=== PATIENT | female | born 1985 | race Caucasian/White ===

== ENCOUNTER 2019-09-23 04:03 | Emergency (ER) | payer BC ==
--- NOTE | 2019-09-23 12:07 | PREOPHP ---
Date of Admission: 09/23/2019 History Of Present Illness: Ms. Ludwig is a 34-year-old female, 3, para 2-0-0-2, now at 39+ weeks gestation. She has been followed by me during this with complications of adv anced maternal age, mild anemia. She noted increasing cramping, was observed in Labor and Delivery e nikita this morning, was dismissed. She comes in for her visit complaining of probable rupture of memb ranes. Past Medical History: Please see record. Family History: Please see record. Review of Systems: She reports no recent cough, cold, fever, or chills. No recent nausea or vomiting. No breast knots or lumps. No bowel or bladder issues. Physical Examination: General: female, in no apparent distress. Neck: Supple without adenopathy or thyromegaly. Lungs: Clear. Cardiac: Regular rate and rhythm without murmurs. Breasts: Not examined. Abdomen: Estimated weight of approximately 8 pounds. Pelvic/Cervix: There is increased discharge with Nitrazine positive. Cervix is 3 cm dilated, 50% ef faced, vertex presentation at -1 to -2 station. Extremities: No cyanosis, clubbing, or edema. Impression: A 39+ week , advanced maternal age, suspected rupture of membranes. Plan: The patient will be admitted for induction of labor. SAVAGE/WILFREDO Voice ID: [id number]
== END 2019-09-23 05:18 | disposition home or self-care (01) ==
LOC: ER 04:03 → L&D 04:03 → ER 05:18 → 2ND-WC 11:16 → UNDOADMIN 11:16 → EDSTATUS 11:25
DX: O60.00 Preterm labor without delivery, unspecified trimester (principal)
CPT/HCPCS: 99218

== ENCOUNTER 2019-09-23 11:32 | Inpatient (IN) | payer BC ==
[2019-09-23] MEDS ORDERED: BUTORPHANOL 1 MG/ML INJ IV PRN (11:35)
[2019-09-23] MEDS ORDERED: METHYLERGONOVINE 0.2MG/ML AMP IM PRN ×2 (11:35→16:26)
[2019-09-23] MEDS ORDERED: CARBOPROST TROME 250 MCG/ML IM PRN ×2 (11:35→16:26)
[2019-09-23] MEDS ORDERED: PROMETHAZINE INJ 25 MG/ML AMP IV PRN (11:35)
[2019-09-23] MEDS ORDERED: Ringers Lactate 1,000 ML IV PRN (11:35)
[2019-09-23 11:54] LABS: Absolute Lymphocytes (CBC) 1.8 K/uL (0.7-4.9); Basophils % 0.6 % (0-1.3); Hematocrit 35.5 % (36.0-45.0); Lymphocytes % 16.6 % (15.3-44.8); MPV 11.1 fL (7.6-11.3); RBC Red Blood Cell Count 3.78 M/uL (3.86-4.86)
[2019-09-23] MEDS ORDERED: Ringers Lactate 1,000 ML IV SCH (12:00)
[2019-09-23] MEDS ORDERED: OXYTOCIN/LR 20 UNIT/1,000 ML BAG IV SCH ×2 (12:00→17:00)
[2019-09-23] MEDS ORDERED: ROPIVACAINE HCL 100 ML IV PRN (12:14)
[2019-09-23] MEDS ORDERED: FENTANYL CITR 100 MCG/2 ML IV ONE (12:14)
[2019-09-23] MEDS ORDERED: ROPIVACAINE HCL 0.2% 20ML AMP IV ONE (12:15)
[2019-09-23 12:19] VITALS: BMI 37.9
[2019-09-23] MEDS ORDERED: LIDOCAINE 1% 20 ML MDV ONE (14:34)
[2019-09-23] MEDS ORDERED: ONDANSETRON 4 MG (ODT) TAB PO PRN (16:26)
[2019-09-23] MEDS ORDERED: METHYLERGONOVINE 0.2 MG TAB PO PRN (16:26)
--- NOTE | 2019-09-23 16:30 | P.BOP ---
Preoperative diagnosis: 39+week , SROM, AMA, meconium stained fluid Postoperative diagnosis: same, viable male infant Primary procedure: SCVD viable male infant Estimated blood loss: 100ml Anesthesia: epidural Complications: None Transferred to: Other (273) Condition: Good
[2019-09-23] MEDS: ACETAMINOPHEN 500 MG TAB PO PRN (17:53)
[2019-09-24] MEDS: IBUPROFEN 600 MG TAB PO PRN ×3 (00:36→15:53)
--- NOTE | 2019-09-24 10:09 | DN ---
Surgeon: James Torre MD Ms. Ludwig is 34-year-old female 3, para 2-0-0-2 at 39+ weeks' gestation, admitted wi th leaking membranes. Because of this, she was induced with Pitocin. She had a first stage of labor for 5 hours and 55 minutes, second stage of labor 7 minutes. She delivered by spontaneous controlle d vaginal delivery a 7 pound 15 ounce male infant, 9 and 9 with delayed cord clamping. Cord wa s clamped, cut, and the placed on mother's upper abdomen. delivered vertex OA. Mother suffered no laceration. She delivered with epidural anesthesia with good effect. Quantitative bloo d loss was 65 mL. MPG/MODL Voice ID: [id number] Report ID: [id number]
[2019-09-24] MEDS: ACETAMINOPHEN 500 MG TAB PO PRN (11:35)
[2019-09-24 16:03] VITALS: BP 125/62; TEMP 98.1
[2019-09-24 22:38] LABS: RPR (Rapid Plasma Reagin) NON-REACT (NON-REACT)
--- NOTE | 2019-09-25 00:46 | DS ---
Date of Discharge: 09/24/2019 Final Hospital Discharge Diagnosis: 39 plus week , delivered; advanced maternal age. Complications: None. Procedures: Pitocin induction of labor, spontaneous, controlled vaginal delivery of viable male infa nt. Hospital Course: The patient is a 34-year-old female, 3, para 2-0-0-2 at 39 plus w eeks gestation, admitted with spontaneous rupture of membranes. She was augmented/induced with Pitoc in and had an uneventful labor and delivery of 7-pound 15-ounce male infant, 9 and 9 with epidu ral anesthesia. She was dismissed on the first day, ambulatory, on a select diet with rou chapis post vaginal delivery activity restriction. She had an admission hemoglobin and hematocrit of 1 2.1 and 35.5, dismissal of 33.6. She is Rh positive blood type. Rubella immune. She was dismissed to continue taking her iron and vitamins to be seen back in my office in 1 week with the usu al post vaginal delivery, activity restrictions. SAVAGE/WILFREDO Voice ID: [id number] Report ID: [id number]
[2019-09-26 11:48] LABS: HBsAG Nonreactive (Nonreactive)
--- NOTE | 2019-10-03 10:27 | PREOPHP ---
Date of Admission: 09/23/2019 History Of Present Illness: Ms. Ludwig is a 34-year-old female 3, para 2-0-0-2, who was seen in my office, noted to have leaking membranes. She had been observed in Labor and delivery, but the rupture of membranes could not be confirmed earlier in the day, but is positive on examinati on in my office. She is only having very irregular contractions. She will be admitted for induction of labor. Past Medical History: Please see record. Family History: Please see record. Review of Systems: She reports no recent cough, cold, fever, or chills. No recent nausea or vomiting. No breast knots or lumps. No bowel or bladder issues. has been active. She denies any significant vaginal b leeding or spotting. Physical Examination: General: Reveals a female in no apparent distress. Neck: Supple without adenopathy or thyromegaly. Lungs: Clear. Cardiac: Regular rate and rhythm without murmurs. Breasts: Not examined. Abdomen: Estimated weight of 8 pounds. Pelvic: Cervix noted to be 1+, 2 cm dilated. Vertex presentation. Extremities: Trace lower extremity edema. Impression: 1.A 39+ week gestation. 2.Spontaneous rupture of membranes, not in active labor. 3.Advanced maternal age. Plan: The patient will be admitted for induction of labor. SAVAGE/WILFREDO Voice ID: [id number]
--- NOTE | 2019-10-07 14:49 | DN ---
Surgeon: James Torre MD Ms. Ludwig is 34-year-old female 3, para 2-0-0-2, admitted with spontaneous rupture o f membranes, not in active labor. After induction of labor she had a first stage of labor of 5 hours and 55 minutes, second stage of labor 7 minutes. She delivered via spontaneous controlled vaginal d elivery a 7 pound 15 ounce male infant. After delayed cord clamping, the was placed on mother 's upper abdomen. Apgars were 9 and 9. Cord blood obtained. Placenta was spontaneously expelled an d appeared to be intact. Intrauterine examination revealed no retained placental fragments. She del ivered with epidural anesthesia with good effect. Quantitative blood loss was 65 mL. MPG/MODL Voice ID: [id number] Report ID: [id number]
== END 2019-09-24 17:55 | disposition home or self-care (01) | DRG 807 ==
LOC: 2ND-WC 11:32
PROVIDERS: ADMIT Specialist; ATTEND Specialist
PROC: 10E0XZZ Delivery of Products of Conception, External Approach (ICD-10-PCS; principal; 2019-09-23)
DX: O80 Encounter for full-term uncomplicated delivery (principal); Z37.0 Single live birth; Z3A.39 39 weeks gestation of pregnancy
CPT/HCPCS: 36415; 85014; 85025; 86592; 86901; 87340; 99218; J2210; J2590; J2795; J3010; J7120

== ENCOUNTER 2024-11-26 13:53 | Emergency (ER) | payer BC ==
--- OUTSIDE RECORDS SUMMARY | 2024-11-26 13:57 | XMS REPORT | Continuity of Care Document ---
Author Name Unknown Address [address] [facility]. [address] [place] [address] Organization [facility] [place] Address [address] [facility] [place] [address] Care Team Providers Care Detasseler Name Role Phone Newton Guevara DO Primary Care Physician [phone] ANDERSON, KYLEIGH CAM Attending Clinician Unavailable ANDERSON, KYLEIGH CAM Attending Clinician Unavailable ELLIE SANCHEZ Attending Clinician Unavailable Doctor Unassigned, Fridley Attending Clinician U hiram Bailey RNDaysi Attending Clinician Unavailable CHANO CHA Attending Clinician Unavailable Chano Cha MD Attending Clinician [phone] Unknown, Attending Attending Clinician Unavailab RAMONA Wright Attending Clinician Unavailable Ramona Napier PA-C Attending Clinician [phone] HIRAM AYALA Attending Clinician Unavailable Hiram Villa Attending Clinician [phone] Doctor Unassigned, [place]ley Attending Clinician U GERARDO Galdamez Attending Clinician Unavailable LAB90 Attending Clinician Unavailable Gerardo Meléndez Attending Clinician [phone] CAROL ANN SIBLEY Attending Clinician Unavailabl Carol Ann Witt Attending Clinician [phone] ANDERSON, KYLEIGH CAM Admitting Clinician Unavailable Payers Payer Name Policy Type Policy Number Effective Date Expirati on Date Source [facility] [id number] 2017 00:00:00 [place] [id number] 2018 00:00:00 [employer] 2 [id number] 2021 00:00:00 Problems Condition Name Condition Details Condition Category Status Onset Date Resolution Date Last Treatment Date Treating Clinician Comments Source Presence of intrauteri ne contracept yudith device Presence of intrauteri ne contracept yudith device Disease Active 02-06 00:00: 00 [facility] Encounter for tubal ligation counseling Encounter for tubal ligation counseling Disease Active 02-06 00:00: 00 [facility] Gastroesop hageal reflux disease without esophagiti s - Controlled Gastroesop hageal reflux disease without esophagiti s - Controlled Disease Active 12-07 00:00: 00 Tiffanie alanis Chest pain Chest pain Disease Active 12-07 00:00: 00 Tiffanie alanis DESIRAE (generaliz ed anxiety disorder) - Not Controlled DESIRAE (generaliz ed anxiety disorder) - Not Controlled Disease Active 12-07 00:00: 00 Tiffanie alanis No known active problems No known active problems Disease [facility] Allergies, Adverse Reactions, Alerts Allergy Name Allergy Type Status Severity Reaction(s) Onset Date Inactive Date Treating Clinician Comments Source AMOXICIL JENNIFER-POT CLAVULAN ATE DRUG Active N/V 09-05 00:00: 00 [facility] Amoxicil jennifer-Pot Clavulan ate Propensi ty to adverse reaction s Active Nausea and/or Vomiting 09-05 00:00: 00 [facility] NO KNOWN ALLERGIE S Drug Class Active [facility] Social History Social Habit Start Date Stop Date Quantity Comments Source Gender identity [facility] Sexual orientation U [facility] History of tobacco use Cigarette Smoker Tiffanie Coronado old - External Tobacco Comment 2024-03-05 00:00:00 2024-03-05 00:00:00 PINA [facility] History of Social function 2024-03-05 00:00:00 2024-03-05 00:00:00 [facility] Tobacco use and exposure 2024-02-07 00:00:00 2024-02-07 00:00:00 Smokeless tobacco non-user [facility] Alcoholic beverage intake 2024-02-07 00:00:00 2024-02-07 00:00:00 Current drinker of alcohol (finding) [facility] Alcohol Comment 2024-02-07 00:00:00 2024-02-07 00:00:00 ocassional [facility] Alcohol intake 2023-03-30 00:00:00 2023-03-30 00:00:00 Current drinker of alcohol (finding) [facility] Exposure to SARS-CoV-2 (event) 2022-08-26 00:00:00 2022-09-05 09:13:00 Not sure [facility] Sex Assigned At 1985 00:00:00 1985 00:00:00 Tiffanie Olivera - External Smoking Status Start Date Stop Date Source Unknown if ever smoked [facility] Never smoked tobacco [facility] Light tobacco smoker 2021-12-07 00:00:00 Tiffanie Olivera - External Medications Ordered Medication Name Filled Medication Name Start Date Stop Date Current Medication? Ordering Clinician Indication Dosage Frequency Signature (SIG) Comments Components Source bromphenira mine-pseudo ephedrine-D M (BROMFED DM) 2-30-10 mg/5 mL syrup 02-25 00:00: 00 Yes [id number] 10mL Take 10 mL by mouth 4 (four) times daily as needed for Cold symptoms, Congestion /Allergies or Cough. [facility] azelastine 137 mcg (0.1 %) nasal spray 02-25 00:00: 00 Yes [id number] 1{spray } Use 1 Dexter in each nostril in the morning and 1 Dexter in the evening. Use in each nostril as directed [facility] methylPREDN ISolone (MEDROL, MARIA ISABEL,) 4 mg tablets 02-25 00:00: 00 Yes [id number] Take by mouth SEE-INSTRU CTIONS. follow package directions [facility] albuterol 90 mcg/actuati on inhaler 02-25 00:00: 00 Yes [id number] 2{puff} Inhale 2 Puffs every 6 (six) hours as needed for Shortness of Breath or Wheezing. [facility] polymyxin B sulf-trimet hoprim 10,000 unit- 1 mg/mL ophthalmic drops 02-25 00:00: 00 03-05 04:59 :00 No [id number] 1[drp] Place 1 Drop in both eyes 4 (four) times daily for 7 days. [facility] TIRZEPATIDE , WEIGHT LOSS, SC 02-06 14:30: 03 Yes inject under the skin. Sundays [facility] Cetirizine (ZYRTEC) 10 mg capsule 02-06 14:29: 28 Yes Take by mouth. [facility] Cetirizine (ZYRTEC) 10 mg capsule 03-30 14:45: 44 Yes Take by mouth. [facility] aspirin 81 mg EC tablet 03-30 14:45: 22 Yes 81mg Take 1 tablet by mouth in the morning. [facility] amoxicillin 875 mg tablet 03-30 00:00: 00 04-10 04:59 :00 No [id number] 875mg Take 1 tablet by mouth in the morning and 1 tablet in the evening. Do all this for 10 days. [facility] fluconazole (DIFLUCAN) 150 mg tablet 03-30 00:00: 00 03-31 04:59 :00 No [id number] 150mg Take 1 tablet by mouth once now for 1 dose. [facility] Cetirizine (ZYRTEC) 10 mg capsule 09-05 09:21: 40 Yes Take by mouth. [facility] albuterol 90 mcg/actuati on inhaler 09-05 00:00: 00 09-16 05:59 :00 No [id number] 2{puff} Inhale 2 Puffs every 6 (six) hours as needed for Wheezing for up to 10 days. [facility] predniSONE 20 mg tablet 09-05 00:00: 00 09-11 05:59 :00 No [id number] 40mg Take 2 tablets by mouth in the morning for 5 days. [facility] methylPREDN ISolone 4 MG oral Tablet Therapy Pack 2021-08 00:00: 00 Yes [id number] 1{maria isabel} Take 1 maria isabel by mouth See Admin Instructio ns Use as directed Tiffanie alanis Azithromyci n 250 MG oral Tablet 2021-08 00:00: 00 07-10 05:59 :00 No [id number] Take 2 tablets by mouth on day 1 then 1 tablet by mouth daily for 4 days thereafter . Tiffanie alanis Bupropion HCL SR 100 MG OR TB12 02-28 00:00: 00 Yes [id number] TAKE 1 TABLET BY MOUTH IN THE MORNING AND 1 IN THE EVENING Tiffanie alanis Propranolol HCl 10 MG oral Tablet 02-28 00:00: 00 Yes [id number] 10mg Take 1 tablet (10 mg total) by mouth 3 times daily Tiffanie alanis methylPREDN ISolone 4 MG oral Tablet Therapy Pack 02-08 00:00: 00 07-04 00:00 :00 No [id number] 1{maria isabel} Take 1 maria isabel by mouth See Admin Instructio ns Use as directed Tiffanie alanis Bupropion HCL SR 100 MG OR TB12 12-07 00:00: 00 Yes [id number] 100mg Take 1 tablet (100 mg total) by mouth in the morning and 1 tablet (100 mg total) in the evening. Tiffanie Olivera Propranolol HCl 10 MG oral Tablet 12-07 00:00: 00 Yes [id number] 10mg Take 1 tablet (10 mg total) by mouth 3 times daily Tiffanie Olivera Cetirizine (ZYRTEC) 10 mg capsule 09-22 16:42: 59 Yes Take by mouth. [facility] No known medications 09-22 16:42: 59 No [facility] fluticasone propionate 50 mcg/actuati on nasal spray 09-22 00:00: 00 Yes [id number] 2{spray } Use 2 Sprays in each nostril daily. [facility] meclizine 25 mg tablet 09-22 00:00: 00 Yes [id number] 25mg Take 1 tablet by mouth 3 (three) times daily as needed for Dizziness. [facility] amoxicillin -clavulanat e (AUGMENTIN) 875-125 mg per tablet 09-22 00:00: 00 10-03 05:59 :00 No [id number] 1{tbl} Take 1 tablet by mouth 2 (two) times daily for 10 days. [facility] Vital Signs Vital Name Observation Time Observation Value Comments S delaneyclaudio Systolic blood pressure 2024-02-26 20:22:00 116 mm[Hg] [facility] Diastolic blood pressure 2024-02-26 20:22:00 84 mm[Hg] [facility] Heart rate 2024-02-26 20:22:00 58 /min [facility] Body temperature 2024-02-26 20:22:00 36.89 Tara [facility] Respiratory rate 2024-02-26 20:22:00 17 /min [facility] Body height 2024-02-26 20:22:00 167.6 cm [facility] Body weight 2024-02-26 20:22:00 87.998 kg [facility] BMI 2024-02-26 20:22:00 31.31 kg/m2 [facility] Oxygen saturation in Arterial blood by Pulse oximetry 2024-02-26 20:22:00 100 /min [facility] Systolic blood pressure 2024-02-07 19:29:00 109 mm[Hg] [facility] Diastolic blood pressure 2024-02-07 19:29:00 63 mm[Hg] [facility] Heart rate 2024-02-07 19:29:00 62 /min [facility] Body temperature 2024-02-07 19:29:00 36.78 Tara [facility] Body height 2024-02-07 19:29:00 167.6 cm [facility] Body weight 2024-02-07 19:29:00 86.637 kg [facility] BMI 2024-02-07 19:29:00 30.83 kg/m2 [facility] Systolic blood pressure 2023-03-30 19:43:00 109 mm[Hg] [facility] Diastolic blood pressure 2023-03-30 19:43:00 75 mm[Hg] [facility] Heart rate 2023-03-30 19:43:00 73 /min [facility] Body temperature 2023-03-30 19:43:00 36.61 Tara [facility] Respiratory rate 2023-03-30 19:43:00 16 /min [facility] Body height 2023-03-30 19:43:00 167.6 cm [facility] Body weight 2023-03-30 19:43:00 86.773 kg [facility] BMI 2023-03-30 19:43:00 30.88 kg/m2 [facility] Oxygen saturation in Arterial blood by Pulse oximetry 2023-03-30 19:43:00 100 /min [facility] Systolic blood pressure 2022-09-05 15:23:00 117 mm[Hg] [facility] Diastolic blood pressure 2022-09-05 15:23:00 81 mm[Hg] [facility] Heart rate 2022-09-05 15:23:00 73 /[facility] Body temperature 2022-09-05 15:23:00 36.67 Tara [facility] Respiratory rate 2022-09-05 15:23:00 18 /min [facility] Body height 2022-09-05 15:23:00 167.6 [facility] 2022-09-05 15:23:00 100.2 kg [facility] BMI 2022-09-05 15:23:00 35.65 kg[facility] Oxygen saturation in Arterial blood by Pulse oximetry 2022-09-05 15:23:00 100 /min [facility] Systolic blood pressure 2022-07-04 19:59:00 118 mm[Hg] Tiffanie Seybo ld - External Diastolic blood pressure 2022-07-04 19:59:00 78 mm[Hg] Tiffanie Seybo ld - External Heart rate 2022-07-04 19:59:00 64 /min Kelse y Seybold - External Body temperature 2022-07-04 19:59:00 36.89 Tara Tiffanie Seybold - External Respiratory rate 2022-07-04 19:59:00 20 /min Tiffanie Seybold - External Body height 2022-07-04 19:59:00 167.6 cm Suyapa ey Seybold - External Body weight 2022-07-04 19:59:00 103.783 kg Suyapa ey Seybold - External BMI 2022-07-04 19:59:00 36.93 kg/m2 Suyapa ey Seybold - External Oxygen saturation in Arterial blood by Pulse oximetry 2022-07-04 19:59:00 99 /min Tiffanie Seybo ld - External Systolic blood pressure 2021-12-07 13:36:00 128 mm[Hg] Tiffanie Seybo ld Diastolic blood pressure 2021-12-07 13:36:00 74 mm[Hg] Tiffanie Seybo ld Heart rate 2021-12-07 13:36:00 91 /min Kelse y Seybold Body temperature 2021-12-07 13:36:00 36.61 Tara Tiffanie Seybold Respiratory rate 2021-12-07 13:36:00 14 /min Tiffanie Seybold Body height 2021-12-07 13:36:00 170.2 cm Suyapa ey Seybold Body weight 2021-12-07 13:36:00 102.967 kg Usyapa ey Seybold BMI 2021-12-07 13:36:00 35.55 kg/m2 Suyapa ey Seybold Systolic blood pressure 2021-09-22 22:32:00 140 mm[Hg] [facility] Diastolic blood pressure 2021-09-22 22:32:00 81 mm[Hg] [facility] Heart rate 2021-09-22 22:32:00 98 /min [facility] Body temperature 2021-09-22 22:32:00 36.11 Tara [facility] Respiratory rate 2021-09-22 22:32:00 16 /min [facility] Body weight 2021-09-22 22:32:00 97.977 kg [facility] Oxygen saturation in Arterial blood by Pulse oximetry 2021-09-22 22:32:00 99 /min [place] [facility] Procedures Procedure Date / Time Performed Performing Clinicia n Source POCT SARS-COV-2 ANTIGEN (BINAX NOW) 2024-02-26 20:30:00 Chano Cha [facility] POCT MOLECULAR STREP 2024-02-26 20:20:00 Unknown, Daniella ware [facility] POCT MOLECULAR STREP 2023-03-30 19:51:00 Unknown, Daniella ware [facility] ASSIGNMENT OF BENEFITS 2022-09-05 15:16:24 Docto r Unassigned, Fridley [facility] EXTERNAL PROVIDER RECORDS 2021 06:01:00 Doctor Unassigned, Fridley [facility] Encounters Start Date/Time End Date/Time Encounter Type Admission Type Attending Clinicians Care Facility Care Department Encounter ID Source 2024-02-21 11:12:49 Outpatient KYLEIGH RAI VIEN [facility] TILE SETTER APPRENTICE [id number] [facility] 2024-11-25 08:30:00 2024-11-25 08:30:00 Outpatient ELLIE SANCHEZ [facility] [id number] [facility] 2024-04-26 13:00:00 2024-04-26 13:00:00 Outpatient KYLEIGH RAI VIEN [facility] [id number] [facility] 2024-02-22 00:00:00 2024-03-30 18:25:04 Patient Secure Msg Doctor Unassigned, [place] Doctor Unassigned, Fridley [facility] [place] 1.2.840.114 350.1.13.10 4.2.7.2.686 [id number] [facility] 2024-03-12 13:45:00 2024-03-12 13:45:00 Outpatient R ANDERSON, KYLEIGH BLANCO [facility] [id number] [facility] 2024-03-05 00:00:00 2024-03-08 11:02:29 Telephone Daysi Bailey [facility] 1.2.840.114 350.1.13.10 4.2.7.2.686 [id number] [facility] 2024-02-26 15:00:00 2024-02-26 15:42:43 Outpatient R CHANO CHA [facility] [id number] [facility] 2024-02-26 15:00:00 2024-02-26 15:42:43 Urgent Care Chano Cha Unknown, Attending [facility] 1.2.840.114 350.1.13.10 4.2.7.2.686 [id number] [facility] 2024-02-07 00:00:00 2024-02-07 16:39:16 Prep For Surgery Kyleigh Anderson [facility] 1.2.840.114 350.1.13.10 4.2.7.2.686 [id number] [facility] 2024-02-07 14:45:00 2024-02-07 14:50:24 Office Visit Kyleigh Anderson [facility] 1.2.840.114 350.1.13.10 4.2.7.2.686 [id number] [facility] 2024-02-07 14:45:00 2024-02-07 14:50:24 Outpatient R JUSTIN KYLEIGH BLANCO [facility] [id number] [facility] 2023-03-30 14:40:00 2023-03-30 15:02:17 Outpatient R RAMONA NAPIER [facility] [id number] [facility] 2023-03-30 14:40:00 2023-03-30 15:02:17 Urgent Care Ramona Napier Unknown, Attending [facility] 1.2.840.114 350.1.13.10 4.2.7.2.686 [id number] [facility] 2022-09-05 09:20:00 2022-09-05 09:33:49 Outpatient R HIRAM AYALA [facility] [id number] [facility] 2022-09-05 09:20:00 2022-09-05 09:33:49 Urgent Care Char Aylaadanutaparul Unknown, Attending [facility] 1.2.840.114 350.1.13.10 4.2.7.2.686 [id number] [facility] 2022-09-05 00:00:00 2022-09-05 00:00:00 Orders Only Doctor Unassigned, Fr[place]ley [facility] 1.2.840.114 350.1.13.10 4.2.7.2.686 [id number] [facility] 2022-07-18 10:00:00 2022-07-18 10:00:00 Outpatient GERARDO GRANGER [id number] T[facility] 2022-07-06 00:00:00 2022-07-06 00:00:00 Outpatient GERARDO GRANGER [id number] T[facility] 2022-07-04 14:00:00 2022-07-04 14:00:00 Outpatient GERARDO GRANGER [id number] Tiffanie [facility] 2022-02-08 00:00:00 2022-02-08 00:00:00 Outpatient GERARDO GRANGER [id number] Tfifanie jarvis 2022-02-03 08:00:00 2022-02-03 08:00:00 Outpatient GERARDO GRANGER [id number] [facility] 2022-02-03 08:00:00 2022-02-03 08:00:00 Outpatient GERARDO GRANGER [id number] Tiffanie Olivera 2022-01-07 08:00:00 2022-01-07 08:00:00 Outpatient GERARDO GRANGER [id number] Tiffanie Olivera 2021-12-07 10:00:00 2021-12-07 10:00:00 Outpatient LAB90 TIFFANIE STONER [id number] Tiffanie Montezlizandro 2021-12-07 09:00:00 2021-12-07 09:45:00 Office Visit Gerardo Granger 1.2.840.114 350.1.13.13 [id number] [id number] Tiffanie Olivera 2021-12-07 09:00:00 2021-12-07 09:00:00 Outpatient GERARDO GRANGER [id number] Tiff[facility] 2021-09-22 16:20:00 2021-09-22 16:50:52 [id number] 2021-09-22 16:20:00 2021-09-22 16:50:52 Urgent Care Carol Ann Sibley [facility] 1.2.840.114 350.1.13.10 4.2.7.2.686 [id number] [facility] 2021 00:00:00 2021 00:00:00 Orders Only Doctor Unassigned, Fr[place]ley [facility] [id number] 350.1.13.10 4.2.7.2.686 [id number] [facility] Results Test Description Test Time Test Comments Results Result Co mments [id number] 20:27:48* Test Item Value Reference Range Interpretation Comme nts POCT Molecular Strep (test c ode = 71400-1) Negative Negative Lab Interpretation (test cod e = 71552-8) Normal [facility] [id number] 19:53:59* Test Item Value Reference Range Interpretation Comme nts POCT Molecular Strep (test c ode = 87113-2) Positive Negative A Lab Interpretation (test cod e = 75710-1) Abnormal [facility] Notes Date/Time Note Provider Source 2024-03-08 11:01:23 LM on for pt to stop smoking 7 days prior to smoking. JACQUIE ROSA RN 03/08/2024 11:02 AM [facility] 2024-03-06 12:55:[address] Anderson- why is she taking ASA? LM on . Phloronol message sent. JACQUIE ROSA RN 03/06/2024 12:55 PM [facility] 2024-03-06 10:24:[address] Anderson. JACQUIE ROSA RN 03/06/2024 10:24 AM [facility] 2024-03-05 17:24:14 Ms. Ludwig is scheduled for bilateral laparoscopic salpingectomy with Dr. Anderson on 03/19/24.She takes ASA 81 mg daily. She said she did not receive pre-op instructions to hold or continue this medication. Should she hold prior to surgery, and if so, how long? Thank you. [facility]
--- NOTE | 2024-11-26 15:04 | RAD REPORT ---
EXAM: CT brain without contrast HISTORY: HEADACHE COMPARISON: None TECHNIQUE: Multiple contiguous axial images were obtained and a CT of the brain without contrast. Sag ittal and coronal reformats were performed. One or more of the following dose reduction techniques were used: Automated exposure control, adjust ment of the mA and/or kV according to patient size, and/or iterative reconstruction. FINDINGS: No evidence of hydrocephalus, intracranial hemorrhage, or extra-axial fluid collection. The brain is normal in morphology. No evidence of midline shift or areas of brain edema. The calvarium is intact. The visualized paranasal sinuses and mastoid air cells are essentially clear . IMPRESSION: No evidence of acute intracranial abnormality.
[2024-11-26 15:21] LABS: Absolute Basophils 0.1 K/uL (0-0.5); Absolute Lymphocytes (CBC) 1.7 K/uL (0.7-4.9); Absolute Monocytes 0.5 K/uL (0.1-1.3); Absolute Neutrophil 6.6 K/uL (1.8-8.0); Basophils % 1.2 % (0-1.3); Eosinophils % 0.5 % (0-4.4); Hematocrit 39.2 % (36.0-45.0); Hemoglobin 13.9 g/dL (12.0-15.0); MCH 31.9 pg (27.0-35.0); MCHC 35.4 g/dL (32.0-36.0); MCV 90.2 fL (80-100); MPV 8.5 fL (7.6-11.3); Monocytes % 5.3 % (3.3-12.3); Platelets 259 thou/uL (152-406); RBC Red Blood Cell Count 4.35 M/uL (3.86-4.86)
[2024-11-26 15:23] LABS: PT Prothrombin Time 11.7 SECONDS (10-13.0); Protime INR 1.03
[2024-11-26 15:41] LABS: ALT/SGPT 28 U/L (13-56); Albumin 3.7 g/dL (3.4-5.0); Albumin/Globulin Ratio 1.2 (1.1-1.8); Alkaline Phosphatase 62 U/L (45-117); Anion Gap 7.8 mEq/L (5.0-15.0); BUN Blood Urea Nitrogen 18 mg/dL (7-18); Bicarbonate 27 mEq/L (21-32); Bilirubin Total 0.8 mg/dL (0.2-1.0); Globulin 3.2 g/dL (2.3-3.5); Glomerular Filtration Rate 108 ml/min (=/>90); Glucose Level 92 mg/dL (74-106); NT PRO-BNP 108 pg/mL (<125); Protein, Total 6.9 g/dL (6.4-8.2); Sodium Level 139 mEq/L (136-145)
--- NOTE | 2024-11-26 15:41 | RAD REPORT ---
EXAMINATION: ONE VIEW CHEST XR CLINICAL INDICATION: CHEST PAIN TECHNIQUE: Frontal chest projection is submitted. Examination is limited by patient positioning and t echnique. COMPARISON: No prior exam. FINDINGS: The lungs are well inflated and clear. The heart is normal in size. No displaced fractures identified . IMPRESSION: No acute intrathoracic abnormalities.
[2024-11-26 15:43] LABS: AST/SGOT 18 U/L (15-37); Bilirubin Direct < 0.2 mg/dL (0-0.2); Bilirubin Indirect, Calculated 0.6 mg/dL (0.2-0.8); Magnesium 1.9 mg/dL (1.6-2.4); Potassium 3.8 mEq/L (3.5-5.1); Troponin High Sensitivity < 3.0 pg/mL (<58.9)
--- NOTE | 2024-11-26 16:03 | EDPHYS ---
Physician Documentation [facility] Name: Yolande Ludwig Age: 39 yrs Sex: Female : 1985 Arrival Date: 11/26/2024 Time: 13:53 Bed 9 Private MD: ED Physician Katelynn Meyers HPI: 11/26 15:36 This 39 yrs old Female presents to ER via Ambulatory with complaints of Slurred Speech, sp3 Chest Tightness, Numbness Of Arm, Numbness - of neck. 15:36 39-year-old female with no past medical history presents with chief complaint chest sp3 tightness, shortness of breath and "slurred speech" which have all mostly resolved. She denies any other symptoms including fever, headache, trauma, neck pain, abdominal pain, nausea, vomiting, diarrhea, prolonged immobilization, prior DVT or PE, , or any other signs or symptoms on ROS at this time.. Historical: - Allergies: 14:21 Latex, Natural Rubber; iw 14:21 Red Dye; iw - Home Meds: 14:21 None [Active]; iw - PMHx: 14:21 None; iw - PSHx: 14:21 None; iw - Infectious Disease History:: Denies. - Social history:: Smoking status: Reported history of juuling and/or vaping. ROS: 15:39 Constitutional: Negative for fever, chills, and weight loss, Eyes: Negative for injury, sp3 pain, redness, and discharge, ENT: Negative for injury, pain, and discharge, Neck: Negative for injury, pain, and swelling, Abdomen/GI: Negative for abdominal pain, nausea, vomiting, diarrhea, and constipation, Back: Negative for injury and pain, MS/Extremity: Negative for injury and deformity, Skin: Negative for injury, rash, and discoloration, Psych: Negative for depression, anxiety, suicide ideation, homicidal ideation, and hallucinations, Allergy/Immunology: Negative for hives, rash, and allergies, Endocrine: Negative for neck swelling, polydipsia, polyuria, polyphagia, and marked weight changes, Hematologic/Lymphatic: Negative for swollen nodes, abnormal bleeding, and unusual bruising, 15:39 All other systems are negative, Exam: 15:39 Constitutional: This is a well developed, well nourished patient who is awake, alert, sp3 and in no acute distress. Head/Face: Normocephalic, atraumatic. Eyes: Pupils equal round and reactive to light, extra-ocular motions intact. Lids and lashes normal. Conjunctiva and sclera are non-icteric and not injected. Cornea within normal limits. Periorbital areas with no swelling, redness, or edema. ENT: Nares patent. No nasal discharge, no septal abnormalities noted. External auditory canals are clear. Oropharynx with no redness, swelling, or masses, exudates, or evidence of obstruction, uvula midline. Mucous membranes moist. Neck: Trachea midline, no thyromegaly or masses palpated, and no cervical lymphadenopathy. Supple, full range of motion without nuchal rigidity, or vertebral point tenderness. No Meningismus. Chest/axilla: Normal chest wall appearance and motion. Nontender with no deformity. No lesions are appreciated. Cardiovascular: Regular rate and rhythm with a normal S1 and S2. No gallops, murmurs, or rubs. Normal PMI, no JVD. No pulse deficits. Respiratory: Lungs have equal breath sounds bilaterally, clear to auscultation and percussion. No rales, rhonchi or wheezes noted. No increased work of breathing, no retractions or nasal flaring. Abdomen/GI: Soft, non-tender, with normal bowel sounds. No distension or tympany. No guarding or rebound. No evidence of tenderness throughout. Back: No spinal tenderness. No costovertebral tenderness. Full range of motion. Skin: Warm, dry with normal turgor. Normal color with no rashes, no lesions, and no evidence of cellulitis. MS/ Extremity: Pulses equal, no cyanosis. Neurovascular intact. Full, normal range of motion. Neuro: Awake and alert, GCS 15, oriented to person, place, time, and situation. Cranial nerves II-XII grossly intact. Motor strength 5/5 in all extremities. Sensory grossly intact. Cerebellar exam normal. Normal gait. Psych: Awake, alert, with orientation to person, place and time. Behavior, mood, and affect are within normal limits. 15:39 ECG was reviewed by the Attending Physician. EKG demonstrates normal sinus rhythm at 71 bpm with normal intervals, normal QRS, normal axis, normal ST/T-segment's without evidence of acute ischemia. Vital Signs: 14:19 BP 124 / 80; Pulse 63; Resp 18; Temp 98(O); Pulse Ox 100% on R/A; iw 14:22 Weight 74.84 kg; Height 5 ft. 6 in. ; iw 14:22 Body Mass Index 26.63 (74.84 kg, 167.64 cm) iw MDM: 14:23 Medical Screening Exam initiated sp3 15:40 Data reviewed: vital signs, nurses notes, lab test result(s), EKG, radiologic studies. sp3 ED course: 39-year-old female with no past medical history presents with vague symptoms of chest discomfort, shortness of breath and slurred speech which have mostly resolved. Patient has normal neurological exam with NIH stroke scale of 0. Cardiovascular and pulmonary exams are also normal. EKG is normal. Differential diagnosis includes anxiety, viral illness, musculoskeletal spasm, among others. I am not highly suspicious of acute coronary syndrome, PE, TIA/CVA spectrum, or any other critical process at this time. We will still check EKG, chest x-ray, general labs, CT scan of the head and administer general supportive care as needed. Disposition pending workup and patient course with probable discharge home with workup negative with follow-up to PCP for continued outpatient monitoring and studies including hormones, thyroid and other continued workup.. 16:01 ED course: Full workup negative and patient much improved. She states she will work on 3 work stressors to decrease her work stress. She knows she may return here at any time. We will discharge her safely at this time.. 11/26 14:23 Order name: Basic Metabolic Panel; Complete Time: 15:44 sp3 11/26 14:23 Order name: CBC with Diff; Complete Time: 15:42 sp3 11/26 14:23 Order name: LFT's; Complete Time: 15:44 sp3 11/26 14:23 Order name: Magnesium; Complete Time: 15:44 sp3 11/26 14:23 Order name: NT PRO-BNP; Complete Time: 15:44 sp3 11/26 14:23 Order name: PT-INR; Complete Time: 15:42 sp3 11/26 14:23 Order name: Troponin HS; Complete Time: 15:44 sp3 11/26 14:23 Order name: XRAY Chest (1 view); Complete Time: 15:42 sp3 11/26 14:23 Order name: CT Head Brain wo Cont; Complete Time: 15:06 sp3 11/26 14:23 Order name: EKG - Nurse/Tech; Complete Time: 14:33 sp3 11/26 14:23 Order name: IV Saline Lock; Complete Time: 15:17 sp3 11/26 14:23 Order name: Labs collected and sent; Complete Time: 15:17 sp3 Administered Medications: No medications were administered Disposition Summary: 11/26/24 16:02 Discharge Ordered Notes: Location: Home sp3 Condition: Stable sp3 Diagnosis - Chest discomfort, resolved sp3 Followup: sp3 - With: Private Physician - When: Upon discharge from the Emergency Department - Reason: Continuance of care Discharge Instructions: - Discharge Summary Sheet sp3 - Nonspecific Chest Pain, Adult sp3 Forms: - Medication Reconciliation Form sp3 - Antibiotic Education sp3 - Prescription Opioid Use sp3 - Patient Portal Instructions sp3 - Leadership Thank You Letter sp3 Signatures: Dispatcher [employer] Sophia Castellano RN RN iw Patel, Setul, MD MD sp3 Corrections: (The following items were deleted from the chart) 14:24 14:24 BASIC METABOLIC PANEL+C.LAB.BRZ ordered. EDMS EDMS 14:24 14:24 CBC+H.LAB.BRZ ordered. EDMS EDMS 14:24 14:24 HEPATIC FUNCTION+C.LAB.BRZ ordered. EDMS EDMS 14:24 14:24 MAGNESIUM+C.LAB.BRZ ordered. EDMS EDMS 14:24 14:24 PROBNP+C.LAB.BRZ ordered. EDMS EDMS 14:24 14:24 PROTIME (+INR)+COAG.LAB.BRZ ordered. EDMS EDMS 14:24 14:24 Troponin High Sensitivity+C.LAB.BRZ ordered. EDMS EDMS 14:24 14:24 Chest Single View+RAD.RAD.BRZ ordered. EDMS EDMS 14:24 14:24 Head Brain Wo Cont+CT.RAD.BRZ ordered. EDMS EDMS 16:20 14:23 Cardiac monitoring ordered. sp3 jb4 16:20 14:23 Oxygen Per Protocol ordered. sp3 jb4 16:20 14:23 O2 Sat Monitoring ordered. sp3 jb4
--- NOTE | 2024-11-26 16:03 | ER ---
Nurse's Notes [facility] Name: Yolande Ludwig Age: 39 yrs Sex: Female : 1985 Arrival Date: 11/26/2024 Time: 13:53 Bed 9 Private MD: Diagnosis: Chest discomfort, resolved Presentation: 11/26 14:17 Chief complaint: Patient states: day 3 of chest tightness and tingling in both arms , iw pain into jaw and SOB, extreme fatigue , today i caught myself slurring my words today , headache, and dizziness when on exertion. Coronavirus screen: At this time, the client does not indicate any symptoms associated with coronavirus-19. Ebola Screen: No symptoms or risks identified at this time. 14:17 Method Of Arrival: Ambulatory iw 14:19 Initial Sepsis Screen: Does the patient meet any 2 criteria? No. Patient's initial iw sepsis screen is negative. Does the patient have a suspected source of infection? No. Patient's initial sepsis screen is negative. Risk Assessment: Do you want to hurt yourself or someone else? Patient reports no desire to harm self or others. Onset of symptoms was November 23, 2024. 14:19 Acuity: JESS 3 iw Triage Assessment: 14:20 General: Appears in no apparent distress. Behavior is calm, cooperative. Pain: iw Complains of pain in anterior aspect of right upper chest, anterior aspect of left upper chest and mid-sternal area Pain currently is 5 out of 10 on a pain scale. Quality of pain is described as dull, Pain began 2-3 days ago. Is continuous. Neuro: Level of Consciousness is awake, alert, obeys commands. Respiratory: Respiratory effort is even, unlabored, Respiratory pattern is regular, symmetrical. Historical: - Allergies: 14:21 Latex, Natural Rubber; iw 14:21 Red Dye; iw - Home Meds: 14:21 None [Active]; iw - PMHx: 14:21 None; iw - PSHx: 14:21 None; iw - Infectious Disease History:: Denies. - Social history:: Smoking status: Reported history of juuling and/or vaping. Screenin:26 [facility] ED Fall Risk Assessment (Adult) History of falling in the last 3 months, jb4 including since admission No falls in past 3 months (0 pts) Confusion or Disorientation No (0 pts) Intoxicated or Sedated No (0 pts) Impaired Gait No (0 pts) Mobility Assist Device Used No (0 pt) Altered Elimination No (0 pt) Score/Fall Risk Level 0 - 2 = Low Risk Oriented to surroundings, Maintained a safe environment. Abuse screen: Denies threats or abuse. Nutritional screening: No deficits noted. Tuberculosis screening: No symptoms or risk factors identified. Assessment: 16:26 Reassessment: Patient appears in no apparent distress at this time. Patient and/or jb4 family updated on plan of care and expected duration. Pain level reassessed. Patient is alert, oriented x 3, equal unlabored respirations, skin warm/dry/pink. Vital Signs: 14:19 BP 124 / 80; Pulse 63; Resp 18; Temp 98(O); Pulse Ox 100% on R/A; iw 14:22 Weight 74.84 kg; Height 5 ft. 6 in. ; iw 14:22 Body Mass Index 26.63 (74.84 kg, 167.64 cm) iw ED Course: 13:55 Patient arrived in ED. im 14:11 Katelynn Meyers MD is Attending Physician. sp3 14:20 Triage completed. iw 14:22 Arm band placed on. iw 14:57 CT Head Brain wo Cont In Process Unspecified. EDMS 15:06 XRAY Chest (1 view) In Process Unspecified. EDMS 15:17 Basic Metabolic Panel Sent. bc6 15:17 CBC with Diff Sent. bc6 15:17 LFT's Sent. bc6 15:17 Magnesium Sent. bc6 15:17 NT PRO-BNP Sent. bc6 15:17 PT-INR Sent. bc6 15:17 Troponin HS Sent. bc6 15:17 Initial lab(s) drawn, by or, sent to lab. Inserted saline lock: 20 gauge in left bc6 antecubital area, using aseptic technique. Blood collected. Flushed with 10 mL NS. 16:26 Patient has correct armband on for positive identification. Bed in low position. Call jb4 light in reach. Side rails up X 1. Provided Education on: discharge instructions. 16:26 No provider procedures requiring assistance completed. IV discontinued, intact, jb4 bleeding controlled, No redness/swelling at site. Pressure dressing applied. Administered Medications: No medications were administered Medication: 16:26 VIS not applicable for this client. jb4 Outcome: 16:02 Discharge ordered by . sp3 16:26 Discharged to home ambulatory, jb4 16:26 Condition: stable 16:26 Discharge instructions given to patient, Instructed on discharge instructions, follow up and referral plans. Demonstrated understanding of instructions, follow-up care, 16:28 Patient left the ED. jb4 Signatures: Dispatcher [employer] EDSophia Villagomez RN RN iw Dominic Olvera RN RN jb4 Katelynn Meyers MD MD sp3 Jessica Wynne 6 Lissett Lee
[2024-11-26 17:17] VITALS: BP 124/80; TEMP 98; O2SAT 100
== END 2024-11-26 16:28 | disposition home or self-care (01) ==
LOC: ER 13:53
DX: R07.89 Other chest pain (principal); R20.0 Anesthesia of skin
CPT/HCPCS: 36415; 70450; 71045; 80048; 80076; 83735; 83880; 84484; 85025; 85610; 93005